=== PATIENT | male | born 1960 | race Caucasian/White ===

== ENCOUNTER 2020-01-03 17:50 | Inpatient (IN) | payer MEDICARE, MEDICAID ==
[~2020-01-03] VITALS: Ht 177.8 cm; Wt 55.0 kg
[~2020-01-03 17:50] MED LIST: ATOR20TA PO; OMEP-84 PO
[2020-01-03] MEDS ORDERED: nitroGLYCERIN 0.4mg SUBLingual tab SL PRN ×2 (18:20→22:40)
[2020-01-03 18:23] LABS: BASOPHILS # (AUTO) 0.1 X10'3 (0-0.2); BASOPHILS % (AUTO) 1.3 % (0-1); EOSINOPHILS # (AUTO) 0.1 X10'3 (0-0.9); EOSINOPHILS % (AUTO) 1.7 % (0-6); HEMATOCRIT 42.3 % (42.0-52.0); HEMOGLOBIN 14.7 g/dl (14.0-17.9); LYMPHOCYTES % (AUTO) 42.6 % (21-51); MEAN CORPUSCULAR HEMOGLOBIN 33.9 PG (27.0-31.0); MEAN CORPUSCULAR HGB CONC 34.9 g/dL (33.0-36.5); MEAN CORPUSCULAR VOLUME 97.3 FL (78-98); MEAN PLATELET VOLUME 5.9 FL (7.4-10.4); MONOCYTES # (AUTO) 0.5 X10'3 (0-0.9); NEUTROPHILS # (AUTO) 2.1 X10'3 (1.8-7.7); NEUTROPHILS % (AUTO) 43.4 % (42-75); PLATELET COUNT 331 X10'3 (140-440); RED BLOOD COUNT 4.34 X10'6 (4.70-6.10); RED CELL DISTRIBUTION WIDTH 13.9 % (11.5-14.5); WHITE BLOOD COUNT 4.8 X10'3 (4.5-11.0)
[2020-01-03 18:37] LABS: ALANINE AMINOTRANSFERASE 63 U/L (12-78); ALBUMIN 3.3 G/DL (3.4-5.0); ALBUMIN/GLOBULIN RATIO 0.8 (1.1-1.5); ALKALINE PHOSPHATASE 109 IU/L (46-116); ANION GAP 7 (8-16); ASPARTATE AMINO TRANSFERASE 51 U/L (10-37); BILIRUBIN,TOTAL 0.5 MG/DL (0.1-1.0); BLOOD UREA NITROGEN 8 MG/DL (7-18); CALCIUM 8.8 MG/DL (8.5-10.1); CHLORIDE 97 MMOL/L (99-107); GLUCOSE 124 MG/DL (70-104); POTASSIUM 4.2 MMOL/L (3.5-5.1); SODIUM 134 MMOL/L (135-145); TOTAL CARBON DIOXIDE 29.8 MMOL/L (24-32); TOTAL PROTEIN 7.7 G/DL (6.4-8.2); eGFR > 90 ML/MIN
[2020-01-03] MEDS ORDERED: temazepam 15mg capsule PO PRN (21:00)
[2020-01-03] MEDS ORDERED: potassium CL 10mEq/100ml bag 100 ML IV PRN ×2 (22:40)
[2020-01-03] MEDS ORDERED: magnesium Cl slow-release 64mg tablet PO PRN (22:40)
[2020-01-03] MEDS ORDERED: potassium Cl 20 mEq SR tablet PO PRN ×2 (22:40)
[2020-01-03] MEDS ORDERED: acetaminophen 325mg tablet PO PRN ×2 (22:40)
[2020-01-03] MEDS ORDERED: morphine 2 MG/ML inj. syringe IV PRN ×2 (22:40)
[2020-01-03] MEDS ORDERED: HYDROcodone/acetaminophen 10/325mg tab PO PRN (22:40)
[2020-01-03] MEDS ORDERED: magnesium 4gm in 100ml NS 100 ML IV PRN (22:40)
[2020-01-03] MEDS ORDERED: bisacodyl 10mg suppository rectal RC PRN (22:40)
[2020-01-03] MEDS ORDERED: metoclopramide 5 mg/ml inj IV PRN (22:40)
[2020-01-03] MEDS ORDERED: mag hydrox/Alum hydrox/simeth 30ml oral suspension PO PRN ×2 (22:40→22:55)
[2020-01-03] MEDS ORDERED: HYDROcodone/acetaminophen 5mg/325mg tablet PO PRN (22:40)
[2020-01-03] MEDS ORDERED: ondansetron/PF 4mg/2ml inj IV PRN (22:40)
[2020-01-03] MEDS ORDERED: magnesium 2GM in 50ml NS 50 ML IV PRN (22:40)
[2020-01-03] MEDS ORDERED: magnesium hydroxide 30ml (MOM) UD suspension PO PRN (22:40)
[2020-01-03] MEDS ORDERED: dextrose 50%-water 50ml dispensing syringe IV PRN (22:55)
[2020-01-03] MEDS ORDERED: haloperidol 5mg tablet PO PRN (22:55)
[2020-01-03] MEDS ORDERED: LORazepam 2 mg/ml vial IV PRN (22:55)
[2020-01-03] MEDS ORDERED: LORazepam 1 MG tablet PO PRN (22:55)
[2020-01-03] MEDS ORDERED: haloperidol lactate 5mg/ml inj IM PRN (22:55)
[2020-01-03] MEDS ORDERED: thiamine 100mg/ml 2ml inj. IV ONE (22:55)
[2020-01-03 23:09] LABS: HEMOGLOBIN A1C 4.6 % (4.5-6.2)
[2020-01-03] MEDS: normal saline 1000ml 1,000 ML IV SCH (23:17)
[2020-01-03 23:19] LABS: H PYLORI ANTIBODY NEGATIVE (Neg)
[2020-01-03] MEDS: pantoprazole 40mg Tablet.DR PO SCH (23:23)
[2020-01-03] MEDS: nicotine 21mg patch - 24 hr TD SCH (23:29)
--- NOTE | 2020-01-03 23:56 | NUR ---
Pt placed on [facility] for comfort.
[2020-01-04] VITALS (7 sets, daily range): BP systolic 147–174; BP diastolic 77–89
--- NOTE | 2020-01-04 00:23 | NUR ---
placed on hospital bed for comfort
[2020-01-04 01:13] LABS: HEMATOCRIT 41.1 % (42.0-52.0); HEMOGLOBIN 14.4 g/dl (14.0-17.9); MEAN CORPUSCULAR HEMOGLOBIN 34.3 PG (27.0-31.0); MEAN CORPUSCULAR HGB CONC 35.2 g/dL (33.0-36.5); MEAN CORPUSCULAR VOLUME 97.6 FL (78-98); MEAN PLATELET VOLUME 6.2 FL (7.4-10.4); PLATELET COUNT 314 X10'3 (140-440); RED BLOOD COUNT 4.21 X10'6 (4.70-6.10); RED CELL DISTRIBUTION WIDTH 13.9 % (11.5-14.5)
[2020-01-04 01:30] LABS: ALBUMIN 3.1 G/DL (3.4-5.0); ANION GAP 8 (8-16); BLOOD UREA NITROGEN 6 MG/DL (7-18); BUN/CREATININE RATIO 8.6 (5.4-32.0); CALCIUM 8.5 MG/DL (8.5-10.1); CHLORIDE 101 MMOL/L (99-107); CHOL/HDL RATIO 1.8 (0.00-4.99); CHOLESTEROL 183 MG/DL (0-200); GLUCOSE 94 MG/DL (70-104); HDL CHOLESTEROL 102 MG/DL (35-60); LDL CHOLESTEROL 61 MG/DL (50-100); SODIUM 135 MMOL/L (135-145); TOTAL CARBON DIOXIDE 25.7 MMOL/L (24-32); TRIGLYCERIDES 52 MG/DL (20-135); eGFR > 90 ML/MIN
--- NOTE | 2020-01-04 07:12 | NUR ---
[employer] AT BEDSIDE.WILL CONT TO MONITOR.
[2020-01-04] MEDS: pantoprazole 40mg Tablet.DR PO SCH (07:54)
[2020-01-04] MEDS ORDERED: K and/or MAG REPLACEMENT MC SCH (08:00)
[2020-01-04] MEDS ORDERED: folic acid 1mg tablet PO SCH (08:00)
[2020-01-04] MEDS ORDERED: multivitamins, therapeutics tablet PO SCH (08:00)
[2020-01-04] MEDS ORDERED: thiamine 100mg tablet PO SCH (08:00)
[2020-01-04] MEDS ORDERED: enoxaparin 40mg/0.4ml syringe SUBCUT SCH (08:00)
[2020-01-04] MEDS: nicotine 21mg patch - 24 hr TD SCH (08:00)
[2020-01-04] MEDS ORDERED: metoprolol tartrate 1mg/ml inj IV PRN (12:00)
[2020-01-04] MEDS ORDERED: nitroGLYCERIN 0.4mg SUBLingual tab SL PRN (12:00)
[2020-01-04] MEDS ORDERED: regadenoson 0.4mg/5ml syringe IV PRN (12:00)
[2020-01-04] MEDS ORDERED: aminophylline 250mg/10ml inj. IV PRN (12:00)
[2020-01-04] MEDS ORDERED: NO HOME MEDS (12:48)
--- NOTE | 2020-01-04 14:00 | NUR ---
Patient in ER, going to [facility] for [facility], then up to [facility] [id number]. I have received report from LYNSEY Salvador and had the opportunity to ask questions and assume patient care. Report given to LYNSEY [place]; all questions answered. Plan of care reviewed.
[2020-01-04] MEDS: normal saline 1000ml 1,000 ML IV SCH (17:05)
--- NOTE | 2020-01-04 18:06 | NUR ---
Problems reprioritized. Patient report given, questions answered & plan of care reviewed with LYNSEY Funez.
--- NOTE | 2020-01-04 18:19 | NUR ---
PAGER ID: [phone] MESSAGE: [phone] wanting to go AMA. South ext [phone]
--- NOTE | 2020-01-04 18:30 | NUR ---
patient signed paperwork to go AMA, did not get day shift report other than patient discharging. Blanca MENON Addendum: 01/04/20 at 1834 by Brannon Mcconnell RN Eder MENON notified
== END 2020-01-04 18:30 | disposition left against medical advice (07) | DRG 313 ==
LOC: ER 17:50 → ED HOLD 22:36 → MED 3N 01-04 13:54
PROVIDERS: ADMIT Family Medicine; ATTEND Internal Medicine
PROC: 4A02XM4 Measurement of Cardiac Total Activity, External Approach (ICD-10-PCS; principal; 2020-01-04)
PROC: 3E073KZ Introduction of Other Diagnostic Substance into Coronary Artery, Percutaneous Approach (ICD-10-PCS; 2020-01-04)
DX: R07.9 Chest pain, unspecified (principal); E87.1 Hypo-osmolality and hyponatremia; F17.210 Nicotine dependence, cigarettes, uncomplicated; Z53.29 Procedure and treatment not carried out because of patient's decision for other reasons; I25.10 Atherosclerotic heart disease of native coronary artery without angina pectoris; I50.9 Heart failure, unspecified; J44.9 Chronic obstructive pulmonary disease, unspecified; Z95.1 Presence of aortocoronary bypass graft; I25.2 Old myocardial infarction; Z95.5 Presence of coronary angioplasty implant and graft; Z72.89 Other problems related to lifestyle
CPT/HCPCS: 36415; 71045; 76700; 78452; 80048; 80053; 80061; 82948; 83036; 83735; 83880; 84484; 85025; 85027; 86677; 87081; 93005; 93017; 93306; 93308; 99283; 99285; A9500; G0378; J1650; J2785; J3411; J7030

== ENCOUNTER 2023-05-19 07:04 | Inpatient (IN) | payer BC, MEDICAID ==
[~2023-05-19] VITALS: Ht 177.8 cm; Wt 57.4 kg
[~2023-05-19 07:04] MED LIST changes: +ASPI-611 PO; -ATOR20TA PO; +CLOP75TA34 PO; +ISOS30TA84 PO; +LISI5TAB22 PO; -OMEP-84 PO; +PANT40TA54 PO; +ROSU20TA73 PO
[2023-05-19 07:35] LABS: BASOPHILS % (AUTO) 0.7 % (0-1); EOSINOPHILS # (AUTO) 0.1 X10'3 (0-0.9); HEMATOCRIT 46.8 % (42.0-52.0); HEMOGLOBIN 16.2 g/dl (14.0-17.9); LYMPHOCYTES # (AUTO) 1.5 X10'3 (1.1-4.8); LYMPHOCYTES % (AUTO) 28.4 % (21-51); MEAN CORPUSCULAR HEMOGLOBIN 32.2 PG (27.0-31.0); MEAN CORPUSCULAR HGB CONC 34.6 g/dL (33.0-36.5); MEAN CORPUSCULAR VOLUME 93.1 FL (78-98); MEAN PLATELET VOLUME 6.1 FL (7.4-10.4); MONOCYTES # (AUTO) 0.6 X10'3 (0-0.9); MONOCYTES % (AUTO) 10.8 % (2-12); NEUTROPHILS # (AUTO) 3.2 X10'3 (1.8-7.7); NEUTROPHILS % (AUTO) 59.1 % (42-75); PLATELET COUNT 391 X10'3 (140-440); RED BLOOD COUNT 5.03 X10'6 (4.70-6.10); WHITE BLOOD COUNT 5.4 X10'3 (4.5-11.0)
[2023-05-19] MEDS ORDERED: aspirin 81mg tab.chew PO SCH (08:20)
[2023-05-19] MEDS: aspirin 81mg tab.chew PO ONE (08:27)
[2023-05-19] MEDS: nitroGLYCERIN 0.4mg/hour patch TD ONE (08:28)
[2023-05-19] MEDS: morphine 4 MG/ML inj SYRINge IV ONE (08:35)
[2023-05-19 08:37] LABS: ALBUMIN 3.6 G/DL (3.4-5.0); ANION GAP 10 (8-16); BLOOD UREA NITROGEN 10 MG/DL (7-18); BUN/CREATININE RATIO 8.5 (10.0-20.0); CALCIUM 8.7 MG/DL (8.5-10.1); CHLORIDE 102 MMOL/L (99-107); CREATININE 1.17 MG/DL (0.60-1.10); GLUCOSE 132 MG/DL (70-104); POTASSIUM 4.3 MMOL/L (3.5-5.1); PRO BRAIN NATRIURETIC PEPTIDE 244 PG/ML (0-125); SODIUM 140 MMOL/L (135-145); TOTAL CARBON DIOXIDE 28.2 MMOL/L (24-32); eCRCL 52 ML/MIN; eGFR 63 ML/MIN
[2023-05-19] MEDS ORDERED: magnesium hydroxide 30ml (MOM) UD suspension PO PRN (08:50)
[2023-05-19] MEDS ORDERED: potassium Cl 40MEQ/1/2NS 520ml 520 ML IV PRN (08:50)
[2023-05-19] MEDS ORDERED: ondansetron/PF 4mg/2ml inj IV PRN (08:50)
[2023-05-19] MEDS ORDERED: magnesium 4gm in 100ml NS 100 ML IV PRN (08:50)
[2023-05-19] MEDS ORDERED: potassium Cl 20 mEq SR tablet PO PRN ×2 (08:50)
[2023-05-19] MEDS ORDERED: acetaminophen 325mg tablet PO PRN (08:50)
[2023-05-19] MEDS ORDERED: magnesium Cl slow-release 64mg tablet PO PRN (08:50)
[2023-05-19] MEDS ORDERED: mag hydrox/Alum hydrox/simeth 30ml oral suspension PO PRN (08:50)
[2023-05-19] MEDS ORDERED: metoprolol tartrate 1mg/ml inj IV PRN (08:55)
[2023-05-19] MEDS ORDERED: aminophylline 250mg/10ml inj. IV PRN (08:55)
[2023-05-19] MEDS ORDERED: nitroGLYCERIN 0.4mg SUBLingual tab SL PRN ×2 (08:55→18:50)
[2023-05-19] MEDS ORDERED: regadenoson 0.4mg/5ml syringe IV PRN (08:55)
[2023-05-19] MEDS: metoprolol tartrate 50mg tablet PO ONE (09:28)
[2023-05-19] MEDS ORDERED: SILD50TA53 PO (10:40)
[2023-05-19] MEDS ORDERED: NITR0.4T51 SL (10:41)
[2023-05-19 14:30] VITALS: BP 142/74; PULSE 63; RESP 20; TEMP 97.4; O2SAT 98
[2023-05-19 18:00] VITALS: BP 121/67; PULSE 64; RESP 22; TEMP 97.8; O2SAT 96
[2023-05-19] MEDS ORDERED: heparin, porcine 5000 units/ml vial SQ SCH (20:00)
[2023-05-19] MEDS: metoprolol tartrate 50mg tablet PO SCH (20:14)
[2023-05-19] MEDS: ROSUVASTATIN CALCIUM 5 MG TABLET PO SCH (20:15)
[2023-05-19] MEDS: heparin, porcine 5000 units/ml vial SQ SCH (20:15)
[2023-05-19 22:00] VITALS: BP 129/73; PULSE 64; RESP 13; TEMP 97.8; O2SAT 95
[2023-05-20] VITALS (19 sets, daily range): BP systolic 93–136; BP diastolic 53–107; PULSE 49–76; RESP 14–18; TEMP 97.3–97.9; O2SAT 92–99
[2023-05-20 07:04] LABS: BASOPHILS % (AUTO) 0.7 % (0-1); EOSINOPHILS # (AUTO) 0.2 X10'3 (0-0.9); EOSINOPHILS % (AUTO) 3.4 % (0-6); HEMATOCRIT 43.3 % (42.0-52.0); LYMPHOCYTES # (AUTO) 1.8 X10'3 (1.1-4.8); LYMPHOCYTES % (AUTO) 35.3 % (21-51); MEAN CORPUSCULAR HEMOGLOBIN 32.1 PG (27.0-31.0); MEAN CORPUSCULAR HGB CONC 34.7 g/dL (33.0-36.5); MEAN CORPUSCULAR VOLUME 92.6 FL (78-98); MEAN PLATELET VOLUME 6.2 FL (7.4-10.4); MONOCYTES # (AUTO) 0.5 X10'3 (0-0.9); MONOCYTES % (AUTO) 9.4 % (2-12); NEUTROPHILS # (AUTO) 2.6 X10'3 (1.8-7.7); NEUTROPHILS % (AUTO) 51.2 % (42-75); PLATELET COUNT 339 X10'3 (140-440); RED BLOOD COUNT 4.67 X10'6 (4.70-6.10); WHITE BLOOD COUNT 5.1 X10'3 (4.5-11.0)
[2023-05-20 07:31] LABS: ALBUMIN 2.8 G/DL (3.4-5.0); ALBUMIN/GLOBULIN RATIO 0.8 (1.1-1.5); ALKALINE PHOSPHATASE 69 IU/L (46-116); ANION GAP 5 (8-16); ASPARTATE AMINO TRANSFERASE 15 U/L (10-37); BILIRUBIN,TOTAL 0.7 MG/DL (0.1-1.0); BLOOD UREA NITROGEN 12 MG/DL (7-18); BUN/CREATININE RATIO 11.4 (10.0-20.0); CHLORIDE 106 MMOL/L (99-107); CHOL/HDL RATIO 2.6 (0.00-4.99); CHOLESTEROL 126 MG/DL (0-200); CREATININE 1.05 MG/DL (0.60-1.10); GLUCOSE 88 MG/DL (70-104); HDL CHOLESTEROL 49 MG/DL (35-60); LDL CHOLESTEROL 58 MG/DL (50-100); POTASSIUM 3.7 MMOL/L (3.5-5.1); SODIUM 139 MMOL/L (135-145); TOTAL CARBON DIOXIDE 27.7 MMOL/L (24-32); TOTAL PROTEIN 6.5 G/DL (6.4-8.2); TRIGLYCERIDES 52 MG/DL (20-135); eCRCL 58 ML/MIN; eGFR 71 ML/MIN
[2023-05-20 07:36] LABS: ALANINE AMINOTRANSFERASE < 6 U/L (12-78)
[2023-05-20] MEDS: nicotine 21mg patch - 24 hr TD SCH (08:00)
[2023-05-20] MEDS: regadenoson 0.4mg/5ml syringe IV ONE (09:53)
[2023-05-20] MEDS: aspirin 81mg, enteric-coated 1 TAB TABLET.DR PO SCH (10:56)
[2023-05-20] MEDS: isosorbide mononitrate 30mg tab.SR.24H PO SCH (10:57)
[2023-05-20] MEDS: pantoprazole 40mg Tablet.DR PO SCH (10:57)
[2023-05-20] MEDS: lisinopril 5mg tablet PO SCH (10:57)
[2023-05-20] MEDS ORDERED: midazolam 1 mg/ML 2ml injection ONE (18:14)
[2023-05-20] MEDS ORDERED: iohexol 350 MG/ML 50ML vial IV ONE (18:14)
[2023-05-20] MEDS ORDERED: fentaNYL/PF 50MCG/1 ML 2ML syringe ONE (18:14)
[2023-05-20] MEDS ORDERED: LIDOcaine 1% 30ml preserv. free vial ONE (18:14)
[2023-05-20] MEDS ORDERED: iohexol 350MG/ML 100ml bottle IV ONE (18:15)
[2023-05-20] MEDS ORDERED: diphenhydrAMINE 50 mg/ml inj ONE (18:18)
[2023-05-20] MEDS ORDERED: normal saline 1000ml 1,000 ML IV SCH (18:25)
[2023-05-20] MEDS: clopidogrel 75mg tablet PO SCH (20:04)
[2023-05-20] MEDS ORDERED: nitroGLYCERIN 0.4mg SUBLingual tab SL PRN (20:05)
[2023-05-20] MEDS ORDERED: HYDROcodone/acetaminophen 5mg/325mg tablet PO PRN (20:05)
[2023-05-20] MEDS ORDERED: proCHLORperazine 10 MG/2 ml inj IV PRN (20:05)
[2023-05-20] MEDS ORDERED: HYDROcodone/acetaminophen 10/325mg tab PO PRN (20:05)
[2023-05-20] MEDS ORDERED: ondansetron/PF 4mg/2ml inj IV PRN (20:05)
[2023-05-20] MEDS ORDERED: OXAZEpam 15mg capsule PO PRN (20:05)
[2023-05-20] MEDS: normal saline 1000ml 1,000 ML IV SCH (20:25)
[2023-05-21 02:30] VITALS: BP 109/59; PULSE 63; RESP 17; TEMP 97.9; O2SAT 94
[2023-05-21 06:30] VITALS: BP 111/57; PULSE 62; RESP 17; TEMP 97.4; O2SAT 94
[2023-05-21 07:00] VITALS: PULSE 53
[2023-05-21 07:25] LABS: BASOPHILS % (AUTO) 0.7 % (0-1); EOSINOPHILS # (AUTO) 0.1 X10'3 (0-0.9); EOSINOPHILS % (AUTO) 1.8 % (0-6); HEMATOCRIT 38.5 % (42.0-52.0); HEMOGLOBIN 13.3 g/dl (14.0-17.9); LYMPHOCYTES # (AUTO) 1.5 X10'3 (1.1-4.8); LYMPHOCYTES % (AUTO) 30.6 % (21-51); MEAN CORPUSCULAR HEMOGLOBIN 31.9 PG (27.0-31.0); MEAN CORPUSCULAR HGB CONC 34.4 g/dL (33.0-36.5); MEAN CORPUSCULAR VOLUME 92.6 FL (78-98); MEAN PLATELET VOLUME 6.1 FL (7.4-10.4); MONOCYTES # (AUTO) 0.5 X10'3 (0-0.9); MONOCYTES % (AUTO) 10.1 % (2-12); NEUTROPHILS # (AUTO) 2.7 X10'3 (1.8-7.7); NEUTROPHILS % (AUTO) 56.8 % (42-75); PLATELET COUNT 293 X10'3 (140-440); RED BLOOD COUNT 4.16 X10'6 (4.70-6.10); RED CELL DISTRIBUTION WIDTH 14.9 % (11.5-14.5); WHITE BLOOD COUNT 4.8 X10'3 (4.5-11.0)
[2023-05-21 07:43] LABS: ALBUMIN 2.6 G/DL (3.4-5.0); ALBUMIN/GLOBULIN RATIO 0.8 (1.1-1.5); ALKALINE PHOSPHATASE 60 IU/L (46-116); ANION GAP 8 (8-16); ASPARTATE AMINO TRANSFERASE 13 U/L (10-37); BILIRUBIN,TOTAL 0.8 MG/DL (0.1-1.0); BLOOD UREA NITROGEN 17 MG/DL (7-18); CALCIUM 7.7 MG/DL (8.5-10.1); CHLORIDE 105 MMOL/L (99-107); CREATININE 1.21 MG/DL (0.60-1.10); GLUCOSE 70 MG/DL (70-104); POTASSIUM 3.8 MMOL/L (3.5-5.1); SODIUM 138 MMOL/L (135-145); TOTAL CARBON DIOXIDE 25.2 MMOL/L (24-32); eCRCL 50 ML/MIN; eGFR 60 ML/MIN
[2023-05-21 07:44] LABS: ALANINE AMINOTRANSFERASE < 6 U/L (12-78)
[2023-05-21 08:00] VITALS: RESP 17; O2SAT 96
[2023-05-21] MEDS ORDERED: ringers solution, lacted 1,000 ML IV ONE (08:45)
[2023-05-21 10:00] VITALS: BP 128/58; PULSE 57; RESP 12; TEMP 98.6; O2SAT 96
[2023-05-21] MEDS ORDERED: NICO-687 TD (12:17)
[2023-05-21] MEDS ORDERED: METO-395 PO (12:17)
== END 2023-05-21 13:25 | disposition home or self-care (01) | DRG 287 ==
LOC: ER 07:05 → ED HOLD 08:48 → ORTHO 4S 14:03
PROVIDERS: ADMIT Family Medicine; ATTEND Family Medicine
PROC: 4A023N7 Measurement of Cardiac Sampling and Pressure, Left Heart, Percutaneous Approach (ICD-10-PCS; principal; 2023-05-20)
PROC: B2111ZZ Fluoroscopy of Multiple Coronary Arteries using Low Osmolar Contrast (ICD-10-PCS; 2023-05-20)
PROC: B2151ZZ Fluoroscopy of Left Heart using Low Osmolar Contrast (ICD-10-PCS; 2023-05-20)
PROC: B41F1ZZ Fluoroscopy of Right Lower Extremity Arteries using Low Osmolar Contrast (ICD-10-PCS; 2023-05-20)
PROC: 4A02XM4 Measurement of Cardiac Total Activity, External Approach (ICD-10-PCS; 2023-05-20)
PROC: 3E073KZ Introduction of Other Diagnostic Substance into Coronary Artery, Percutaneous Approach (ICD-10-PCS; 2023-05-20)
DX: I25.110 Atherosclerotic heart disease of native coronary artery with unstable angina pectoris (principal); T82.855A Stenosis of coronary artery stent, initial encounter; I50.9 Heart failure, unspecified; J44.9 Chronic obstructive pulmonary disease, unspecified; F17.210 Nicotine dependence, cigarettes, uncomplicated; Z79.82 Long term (current) use of aspirin; Z79.899 Other long term (current) drug therapy; Z95.1 Presence of aortocoronary bypass graft; Z79.01 Long term (current) use of anticoagulants; I25.2 Old myocardial infarction; Z95.5 Presence of coronary angioplasty implant and graft; Y71.8 Miscellaneous cardiovascular devices associated with adverse incidents, not elsewhere classified; Y92.9 Unspecified place or not applicable
CPT/HCPCS: 36415; 71045; 78452; 80048; 80053; 80061; 83036; 83880; 84484; 85025; 93005; 93017; 93306; 93458; 99152; 99153; 99285; A6258; A9500; C1760; G0378; J1200; J1644; J2250; J2785; J3010; J3490; J7030; Q9967

== ENCOUNTER 2023-09-08 18:26 | Emergency (ER) | payer BC, MEDICAID ==
[~2023-09-08] VITALS: Ht 180.3 cm; Wt 54.5 kg
[~2023-09-08 18:26] MED LIST changes: +METO-395 PO; +NICO-687 TD; +NITR0.4T51 SL; +SILD50TA53 PO
[2023-09-08 19:04] LABS: BASOPHILS # (AUTO) 0.1 X10'3 (0-0.2); BASOPHILS % (AUTO) 1.9 % (0-1); EOSINOPHILS % (AUTO) 0.4 % (0-6); HEMATOCRIT 36.6 % (42.0-52.0); HEMOGLOBIN 12.6 g/dl (14.0-17.9); LYMPHOCYTES # (AUTO) 0.9 X10'3 (1.1-4.8); LYMPHOCYTES % (AUTO) 16.1 % (21-51); MEAN CORPUSCULAR HEMOGLOBIN 31.2 PG (27.0-31.0); MEAN CORPUSCULAR HGB CONC 34.3 g/dL (33.0-36.5); MEAN CORPUSCULAR VOLUME 90.8 FL (78-98); MEAN PLATELET VOLUME 6.3 FL (7.4-10.4); MONOCYTES # (AUTO) 0.4 X10'3 (0-0.9); MONOCYTES % (AUTO) 7.2 % (2-12); NEUTROPHILS # (AUTO) 4.1 X10'3 (1.8-7.7); NEUTROPHILS % (AUTO) 74.4 % (42-75); PLATELET COUNT 274 X10'3 (140-440); RED BLOOD COUNT 4.03 X10'6 (4.70-6.10); RED CELL DISTRIBUTION WIDTH 14.5 % (11.5-14.5); WHITE BLOOD COUNT 5.5 X10'3 (4.5-11.0)
[2023-09-08 19:11] LABS: ALANINE AMINOTRANSFERASE 30 U/L (12-78); ALBUMIN 3.4 G/DL (3.4-5.0); ALBUMIN/GLOBULIN RATIO 0.9 (1.1-1.5); ALKALINE PHOSPHATASE 65 IU/L (46-116); ANION GAP 7 (8-16); ASPARTATE AMINO TRANSFERASE 36 U/L (10-37); BILIRUBIN,TOTAL 1.9 MG/DL (0.1-1.0); BLOOD UREA NITROGEN 9 MG/DL (7-18); BUN/CREATININE RATIO 8.7 (10.0-20.0); CHLORIDE 98 MMOL/L (99-107); CREATININE 1.04 MG/DL (0.60-1.10); GLUCOSE 95 MG/DL (70-104); POTASSIUM 3.7 MMOL/L (3.5-5.1); SODIUM 133 MMOL/L (135-145); TOTAL CARBON DIOXIDE 28.3 MMOL/L (24-32); TOTAL PROTEIN 7.2 G/DL (6.4-8.2); eCRCL 55 ML/MIN; eGFR 72 ML/MIN
[2023-09-08 19:18] LABS: PRO BRAIN NATRIURETIC PEPTIDE 714 PG/ML (0-125)
[2023-09-08] MEDS: ondansetron 4mg rapidly disintigrating tab PO ONE (19:22)
[2023-09-08 21:39] VITALS: TEMP 97.9
[2023-09-08 22:01] LABS: LIPASE 74 U/L (16-77)
[2023-09-08] MEDS: mag hydrox/Alum hydrox/simeth 30ml oral suspension PO ONE (22:10)
[2023-09-08] MEDS: LIDOcaine 2% Viscous 15ml cup MM ONE (22:10)
[2023-09-08] MEDS: famotidine/PF 10 mg/ml inj IV ONE (22:18)
[2023-09-08] MEDS ORDERED: BENZ-38 PO (22:37)
[2023-09-08] MEDS ORDERED: ACET-1025 PO (22:37)
[2023-09-08] MEDS: acetaminophen 325mg tablet PO ONE (22:40)
[2023-09-08] MEDS: benzonatate 100mg capsule PO ONE (22:40)
[2023-09-08] MEDS: ibuprofen tablet 400 MG TABLET PO ONE (22:43)
[2023-09-08 22:50] VITALS: BP 139/60; PULSE 90; RESP 18; O2SAT 96
== END 2023-09-08 22:53 | disposition home or self-care (01) ==
LOC: ER 18:27
DX: R07.9 Chest pain, unspecified (principal); I50.9 Heart failure, unspecified; I25.2 Old myocardial infarction; J44.9 Chronic obstructive pulmonary disease, unspecified; Z98.890 Other specified postprocedural states; Z79.82 Long term (current) use of aspirin; Z79.899 Other long term (current) drug therapy
CPT/HCPCS: 36415; 71045; 80053; 83690; 83880; 84484; 85025; 93005; 99285; J3490

== ENCOUNTER 2024-03-10 09:11 | Inpatient (IN) | payer BC, MEDICAID ==
[~2024-03-10] VITALS: Ht 332.7 cm; Wt 56.9 kg
[~2024-03-10 09:11] MED LIST changes: -ROSU20TA73 PO; +ROSU20TA98 PO
[2024-03-10 10:04] LABS: BASOPHILS % (AUTO) 0.5 % (0-1); EOSINOPHILS # (AUTO) 0.2 X10'3 (0-0.9); EOSINOPHILS % (AUTO) 3.5 % (0-6); HEMATOCRIT 38.9 % (42.0-52.0); HEMOGLOBIN 13.1 g/dl (14.0-17.9); LYMPHOCYTES # (AUTO) 1.5 X10'3 (1.1-4.8); LYMPHOCYTES % (AUTO) 32.9 % (21-51); MEAN CORPUSCULAR HEMOGLOBIN 30.7 PG (27.0-31.0); MEAN CORPUSCULAR HGB CONC 33.7 g/dL (33.0-36.5); MEAN CORPUSCULAR VOLUME 91.3 FL (78-98); MEAN PLATELET VOLUME 6.4 FL (7.4-10.4); MONOCYTES # (AUTO) 0.4 X10'3 (0-0.9); NEUTROPHILS # (AUTO) 2.6 X10'3 (1.8-7.7); NEUTROPHILS % (AUTO) 55.1 % (42-75); PLATELET COUNT 335 X10'3 (140-440); RED BLOOD COUNT 4.26 X10'6 (4.70-6.10); RED CELL DISTRIBUTION WIDTH 14.5 % (11.5-14.5); WHITE BLOOD COUNT 4.6 X10'3 (4.5-11.0)
[2024-03-10 10:07] LABS: ALANINE AMINOTRANSFERASE 19 U/L (12-78); ALBUMIN 3.5 G/DL (3.4-5.0); ALBUMIN/GLOBULIN RATIO 0.9 (1.1-1.5); ALKALINE PHOSPHATASE 102 IU/L (46-116); ANION GAP 3 (8-16); ASPARTATE AMINO TRANSFERASE 33 U/L (10-37); BILIRUBIN,TOTAL 0.4 MG/DL (0.1-1.0); BLOOD UREA NITROGEN 12 MG/DL (7-18); BUN/CREATININE RATIO 11.4 (10.0-20.0); CALCIUM 9.1 MG/DL (8.5-10.1); CHLORIDE 105 MMOL/L (99-107); CREATININE 1.05 MG/DL (0.60-1.10); GLUCOSE 105 MG/DL (70-104); POTASSIUM 4.3 MMOL/L (3.5-5.1); SODIUM 139 MMOL/L (135-145); TOTAL CARBON DIOXIDE 31.4 MMOL/L (24-32); TOTAL PROTEIN 7.2 G/DL (6.4-8.2); eCRCL 56 ML/MIN; eGFR 71 ML/MIN
[2024-03-10 10:16] LABS: PRO BRAIN NATRIURETIC PEPTIDE 331 PG/ML (0-125)
[2024-03-10 10:24] LABS: LIPASE 52 U/L (16-77)
[2024-03-10 13:24] LABS: BILIRUBIN,URINE NEGATIVE (Neg); CLARITY,URINE CLEAR (Clear); COLOR,URINE YELLOW (Yellow); GLUCOSE, URINE NEGATIVE (Neg); KETONES,URINE NEGATIVE (Neg); LEUKOCYTE ESTERASE ,URINE NEGATIVE (Neg); NITRITES, URINE NEGATIVE (Neg); OCCULT BLOOD,URINE NEGATIVE (Neg); PH,URINE 6.5 (4.8-8.0); PROTEIN,URINE NEGATIVE (Neg)
[2024-03-10 13:29] LABS: UA COLLECTION TYPE NON-SPECIFIED
[2024-03-10] MEDS ORDERED: iohexol 300mg/ml 100ml inj. ONE (13:51)
[2024-03-10] MEDS ORDERED: potassium Cl 20 mEq SR tablet PO PRN ×2 (17:05)
[2024-03-10] MEDS ORDERED: mag hydrox/Alum hydrox/simeth 30ml oral suspension PO PRN (17:05)
[2024-03-10] MEDS ORDERED: ondansetron/PF 4mg/2ml inj IV PRN (17:05)
[2024-03-10] MEDS ORDERED: magnesium sulf-water 2g/50mL 50 ML IV PRN (17:05)
[2024-03-10] MEDS ORDERED: magnesium hydroxide 30ml (MOM) UD suspension PO PRN (17:05)
[2024-03-10] MEDS ORDERED: potassium Cl 40MEQ/1/2NS 520ml 520 ML IV PRN (17:05)
[2024-03-10] MEDS ORDERED: acetaminophen 325mg tablet PO PRN (17:05)
[2024-03-10] MEDS ORDERED: magnesium sulf-water 4G/100mL 100 ML IV PRN (17:05)
[2024-03-10] MEDS ORDERED: magnesium Cl slow-release 64mg tablet PO PRN (17:05)
[2024-03-10] MEDS ORDERED: morphine 2 MG/ML inj. syringe IV PRN ×2 (17:05)
[2024-03-10] MEDS ORDERED: metoprolol tartrate 1mg/ml inj IV PRN (17:20)
[2024-03-10] MEDS ORDERED: aminophylline 500mg/20ml vial IV PRN (17:20)
[2024-03-10] MEDS ORDERED: nitroGLYCERIN 0.4mg SUBLingual tab SL PRN (17:20)
[2024-03-10 17:40] LABS: MAGNESIUM 2.3 MG/DL (1.5-2.4)
[2024-03-10 17:53] LABS: HEMOGLOBIN A1C 5.4 % (4.5-6.2)
[2024-03-10 18:06] LABS: APTT 26 SECONDS (22-32); INR 1.1 INR; PROTHROMBIN TIME 11.1 SECONDS (9.0-12.0)
[2024-03-10] MEDS: normal saline 1000ml 1,000 ML IV SCH (18:09)
[2024-03-10] MEDS: K and/or MAG REPLACEMENT MC SCH (18:11)
[2024-03-10] MEDS: docusate sod 100mg capsule PO SCH (18:13)
[2024-03-10] MEDS ORDERED: haloperidol lactate 5mg/ml inj IM PRN (18:35)
[2024-03-10] MEDS ORDERED: LORazepam 2 mg/ml vial IV PRN (18:35)
[2024-03-10] MEDS ORDERED: haloperidol 5mg tablet PO PRN (18:35)
[2024-03-10] MEDS ORDERED: LORazepam 1 MG tablet PO PRN (18:35)
[2024-03-10 21:00] VITALS: BP 155/75; PULSE 68; RESP 18; TEMP 97.5; O2SAT 97
[2024-03-10] MEDS: thiamine 100mg/ml 2ml inj. IV SCH (21:00)
[2024-03-10 21:16] VITALS: RESP 18; O2SAT 97
[2024-03-11] VITALS (9 sets, daily range): BP systolic 102–166; BP diastolic 58–86; PULSE 61–98; RESP 14–22; TEMP 97.7–98.1; O2SAT 96–100
[2024-03-11 06:56] LABS: BASOPHILS % (AUTO) 0.5 % (0-1); EOSINOPHILS # (AUTO) 0.2 X10'3 (0-0.9); EOSINOPHILS % (AUTO) 5.6 % (0-6); HEMATOCRIT 36.2 % (42.0-52.0); HEMOGLOBIN 12.5 g/dl (14.0-17.9); LYMPHOCYTES # (AUTO) 1.4 X10'3 (1.1-4.8); LYMPHOCYTES % (AUTO) 34.7 % (21-51); MEAN CORPUSCULAR HEMOGLOBIN 31.2 PG (27.0-31.0); MEAN CORPUSCULAR HGB CONC 34.7 g/dL (33.0-36.5); MEAN CORPUSCULAR VOLUME 89.9 FL (78-98); MEAN PLATELET VOLUME 6.2 FL (7.4-10.4); MONOCYTES # (AUTO) 0.4 X10'3 (0-0.9); MONOCYTES % (AUTO) 9.1 % (2-12); NEUTROPHILS % (AUTO) 50.1 % (42-75); PLATELET COUNT 285 X10'3 (140-440); RED BLOOD COUNT 4.02 X10'6 (4.70-6.10); RED CELL DISTRIBUTION WIDTH 14.2 % (11.5-14.5)
[2024-03-11 07:18] LABS: ALANINE AMINOTRANSFERASE 40 U/L (12-78); ALBUMIN 2.8 G/DL (3.4-5.0); ALBUMIN/GLOBULIN RATIO 0.8 (1.1-1.5); ALKALINE PHOSPHATASE 111 IU/L (46-116); ANION GAP 5 (8-16); ASPARTATE AMINO TRANSFERASE 44 U/L (10-37); BILIRUBIN,TOTAL 0.6 MG/DL (0.1-1.0); BLOOD UREA NITROGEN 11 MG/DL (7-18); BUN/CREATININE RATIO 10.2 (10.0-20.0); CALCIUM 8.4 MG/DL (8.5-10.1); CHLORIDE 105 MMOL/L (99-107); CHOL/HDL RATIO 1.6 (0.00-4.99); CHOLESTEROL 94 MG/DL (0-200); CREATININE 1.08 MG/DL (0.60-1.10); GLUCOSE 91 MG/DL (70-104); HDL CHOLESTEROL 59 MG/DL (35-60); LDL CHOLESTEROL 31 MG/DL (50-100); LIPASE 33 U/L (16-77); MAGNESIUM 2.5 MG/DL (1.5-2.4); POTASSIUM 4.8 MMOL/L (3.5-5.1); SODIUM 139 MMOL/L (135-145); TOTAL PROTEIN 6.4 G/DL (6.4-8.2); TRIGLYCERIDES 33 MG/DL (20-135); eCRCL 55 ML/MIN; eGFR 69 ML/MIN
[2024-03-11] MEDS: pantoprazole 40 MG vial IV SCH (07:46)
[2024-03-11] MEDS: folic acid 1mg/0.2ml inj IV SCH (08:44)
[2024-03-11] MEDS: regadenoson 0.4mg/5ml syringe IV PRN (09:54)
[2024-03-11] MEDS: HEPARIN DRIP-CARDIAC**PHARMACIST-TO-DOSE IV ONE (15:15)
[2024-03-11] MEDS: metoprolol tartrate 50mg tablet PO ONE (15:30)
[2024-03-11] MEDS: heparin 10,000 units/1 ML INJ IV ONE (15:45)
[2024-03-11] MEDS: aspirin 325mg tablet, delayed-release (Ecotrin) PO ONE (15:46)
[2024-03-11] MEDS: clopidogrel 75mg tablet PO SCH (15:46)
[2024-03-11] MEDS: heparin 25,000 UNIT/250ml bag 250 ML IV PRN (15:48)
[2024-03-11] MEDS: MESSAGE TO NURSING IV ONE ×2 (16:16→23:15)
[2024-03-11] MEDS: atorvastatin 20mg tablet PO SCH (19:43)
[2024-03-11 22:01] LABS: APTT 43 SECONDS (22-32)
[2024-03-11] MEDS: heparin 10,000 units/1 ML INJ IV PRN (22:38)
[2024-03-12 05:32] LABS: BASOPHILS % (AUTO) 0.5 % (0-1); EOSINOPHILS # (AUTO) 0.3 X10'3 (0-0.9); EOSINOPHILS % (AUTO) 4.3 % (0-6); HEMATOCRIT 37.3 % (42.0-52.0); HEMOGLOBIN 12.7 g/dl (14.0-17.9); LYMPHOCYTES # (AUTO) 1.8 X10'3 (1.1-4.8); LYMPHOCYTES % (AUTO) 30.3 % (21-51); MEAN CORPUSCULAR HGB CONC 34.2 g/dL (33.0-36.5); MEAN CORPUSCULAR VOLUME 90.7 FL (78-98); MEAN PLATELET VOLUME 6.4 FL (7.4-10.4); MONOCYTES # (AUTO) 0.5 X10'3 (0-0.9); MONOCYTES % (AUTO) 7.7 % (2-12); NEUTROPHILS # (AUTO) 3.5 X10'3 (1.8-7.7); NEUTROPHILS % (AUTO) 57.2 % (42-75); PLATELET COUNT 321 X10'3 (140-440); RED BLOOD COUNT 4.11 X10'6 (4.70-6.10); RED CELL DISTRIBUTION WIDTH 14.4 % (11.5-14.5); WHITE BLOOD COUNT 6.1 X10'3 (4.5-11.0)
[2024-03-12 05:44] LABS: ALANINE AMINOTRANSFERASE 33 U/L (12-78); ALBUMIN/GLOBULIN RATIO 0.9 (1.1-1.5); ALKALINE PHOSPHATASE 106 IU/L (46-116); ANION GAP 4 (8-16); ASPARTATE AMINO TRANSFERASE 21 U/L (10-37); BILIRUBIN,TOTAL 0.4 MG/DL (0.1-1.0); BLOOD UREA NITROGEN 18 MG/DL (7-18); CALCIUM 8.5 MG/DL (8.5-10.1); CHLORIDE 105 MMOL/L (99-107); CREATININE 1.06 MG/DL (0.60-1.10); GLUCOSE 113 MG/DL (70-104); LIPASE 37 U/L (16-77); MAGNESIUM 2.1 MG/DL (1.5-2.4); POTASSIUM 4.2 MMOL/L (3.5-5.1); SODIUM 140 MMOL/L (135-145); TOTAL CARBON DIOXIDE 30.6 MMOL/L (24-32); TOTAL PROTEIN 6.5 G/DL (6.4-8.2); eCRCL 56 ML/MIN; eGFR 70 ML/MIN
[2024-03-12 06:00] VITALS: BP 117/67; PULSE 76; RESP 16; TEMP 98.1; O2SAT 96
[2024-03-12] MEDS: MESSAGE TO NURSING IV ONE (06:00)
[2024-03-12] MEDS ORDERED: iohexol 350MG/ML 100ml bottle IV ONE (08:17)
[2024-03-12] MEDS ORDERED: midazolam 1 mg/ML 2ml injection ONE (08:17)
[2024-03-12] MEDS ORDERED: fentaNYL/PF 50MCG/1 ML 2ML syringe ONE (08:17)
[2024-03-12] MEDS ORDERED: heparin 1,000unit/ml 10ml vial 10 ML ONE (08:17)
[2024-03-12] MEDS ORDERED: verapamil 2.5 mg/ml inj IV ONE (08:17)
[2024-03-12] MEDS ORDERED: LIDOcaine 1% (10mg/ml) 2ml vial ONE (08:17)
[2024-03-12] MEDS ORDERED: nitroGLYCERIN 500mcg/5mL D5W 5 ML IV ONE (08:18)
[2024-03-12] MEDS: metoprolol succinate 25mg (24-HOUR) SR. Tablet PO SCH (08:25)
[2024-03-12] MEDS: aspirin 81mg, enteric-coated 1 TAB TABLET.DR PO SCH (08:25)
[2024-03-12 08:43] VITALS: BP 138/63; PULSE 72; RESP 20; TEMP 98.4; O2SAT 96
[2024-03-12 10:57] VITALS: BP 124/47; PULSE 61; RESP 18; TEMP 97.5; O2SAT 96
[2024-03-12] MEDS ORDERED: proCHLORperazine 10 MG/2 ml inj IV PRN (11:05)
[2024-03-12] MEDS ORDERED: OXAZEpam 15mg capsule PO PRN (11:05)
[2024-03-12] MEDS ORDERED: HYDROcodone/acetaminophen 5mg/325mg tablet PO PRN (11:05)
[2024-03-12] MEDS ORDERED: HYDROcodone/acetaminophen 10/325mg tab PO PRN (11:05)
[2024-03-12] MEDS ORDERED: ondansetron/PF 4mg/2ml inj IV PRN (11:05)
[2024-03-12] MEDS ORDERED: THIA50TA10 PO (13:11)
[2024-03-12] MEDS ORDERED: FOLI0.4T6 PO (13:11)
== END 2024-03-12 13:20 | disposition home or self-care (01) | DRG 287 ==
LOC: ER 09:12 → ED HOLD 16:06 → ORTHO 4S 20:35
PROVIDERS: ADMIT Family Medicine; ATTEND Family Medicine
PROC: 4A02XM4 Measurement of Cardiac Total Activity, External Approach (ICD-10-PCS; principal; 2024-03-11)
PROC: 3E033HZ Introduction of Radioactive Substance into Peripheral Vein, Percutaneous Approach (ICD-10-PCS; 2024-03-11)
PROC: 4A023N7 Measurement of Cardiac Sampling and Pressure, Left Heart, Percutaneous Approach (ICD-10-PCS; 2024-03-12)
PROC: B2111ZZ Fluoroscopy of Multiple Coronary Arteries using Low Osmolar Contrast (ICD-10-PCS; 2024-03-12)
PROC: B2151ZZ Fluoroscopy of Left Heart using Low Osmolar Contrast (ICD-10-PCS; 2024-03-12)
DX: I24.9 Acute ischemic heart disease, unspecified (principal); K55.1 Chronic vascular disorders of intestine; F10.10 Alcohol abuse, uncomplicated; Y90.9 Presence of alcohol in blood, level not specified; Z95.5 Presence of coronary angioplasty implant and graft
CPT/HCPCS: 36415; 71045; 74176; 78452; 80053; 80061; 81003; 83036; 83690; 83735; 83880; 84484; 85025; 85610; 85730; 87081; 93005; 93017; 93458; 93975; 97161; 97530; 99152; 99153; 99285; A6258; A9500; C1894; G0378; J1644; J2003; J2250; J2470; J2785; J3010; J3411; J3490; J7030; Q9967